=== PATIENT | male | born 1970 | race Caucasian/White ===

== ENCOUNTER 2017-01-16 21:00 | Emergency (ER) | payer BC ==
[2017-01-16 19:23] LABS: INFLUENZA A SCREEN NEGATIVE (NEGATIVE); INFLUENZA B SCREEN NEGATIVE (NEGATIVE)
== END 2017-01-16 21:06 | disposition home or self-care (01) ==
LOC: ER 21:00
PROVIDERS: Specialist
DX: B34.9 Viral infection, unspecified (principal); I10 Essential (primary) hypertension; F31.9 Bipolar disorder, unspecified; Z87.442 Personal history of urinary calculi
CPT/HCPCS: 87804; 99283